=== PATIENT | female | born 1930 | race Caucasian/White ===

== ENCOUNTER 2016-11-12 09:49 | Outpatient (CLI) | payer MEDICARE, OTHER ==
[~2016-11-12] VITALS: Ht 160 cm; Wt 70.3 kg
--- OUTSIDE RECORDS SUMMARY | 2016-11-12 09:53 | XMS REPORT | Continuity of Care Document ---
Author Author [facility] Organization [facility] Address Unknown Phone Unavailable Support Name Relationship Address Phone LILLIAN HOLBROOK MD Caregiver [address] [place] [address] ARACELI SCHWARTZ MD Caregiver [address] [facility] [place] [address] MARICOLETAMEKA [place] [address] Insurance Providers Payer Name Policy Number Subscriber Name Relationship [employer] [id number] Self / Same As Patient Comm Crossover Enter Ins Name [id number] March 13 Self / Same As Patient Advance Directives Directive Response Recorded Date/Time Advance Directives No 08/05/14 3:05pm Organ Donor No 08/05/14 3:05pm Resuscitation Status Full Code 08/05/14 3:05pm Problems No known problems or medical conditions. Medications No known medications. Social History Social History Problem Response Recorded Date/Time Recent Foreign Travel No 08/05/2014 3:08pm Hospital Discharge Instructions No hospital discharge instructions. Plan of Care No plan of care. Functional Status No functional status results. Allergies, Adverse Reactions, Alerts Allergen Type Severity Reaction Status Last Updated No Known Drug Allergies Active 08/05/14 Immunizations No immunization records. Vital Signs Acute Vital Signs Vital Response Date/Time Temperature (Fahrenheit) 97.5 degrees F (97.6 - 99.5) Temperature (Calculated Celsius) 36.87176 degrees C (36.4 - 37.5) Temperature Source Tympanic Pulse Rate (adult) 62 bpm (60 - 90) Respiratory Rate 18 bpm (12 - 24) O2 Sat by Pulse Oximetry 96 % (88 - 100) Blood Pressure 174/101 mm Hg Pain Pain Intensity 2 Pain Pain Intensity 2 Height (Feet) 5 feet Height (Inches) 3.00 inches Height (Calculated Centimeters) 160.885265 cm Weight (Pounds) 165 pounds Weight (Calculated Grams) 45081.742 gm Weight (Calculated Kilograms) 74.642047 kilograms Calculated BMI 29.23 Results No known relevant diagnostic tests, laboratory data and/or discharge summary. Procedures No known history of procedures. Encounters Encounter Location Date/Time Registered Clinic [facility] 08/05/14 1:05pm
[2016-11-12] MEDS ORDERED: BUPIVACAINE 0.25% 30 ML (SENSORCAINE) VIAL ONE (10:04)
[2016-11-12] MEDS ORDERED: TRIAMCINOLONE ACET (KENALOG-40) 40 MG/ML 1 ML VIAL ONE (10:04)
[2016-11-12 10:11] VITALS: BP 121/78
[2016-11-12 10:42] VITALS: BP 127/74
--- NOTE | 2016-11-12 14:14 | Pain Medicine-Procedure ---
Procedure Pre-Op/Post-Op Diagnosis Diagnosis: disc disorder with radiculopathy, lumbar Indications for Operation Low back pain Attending Surgeon Mariano Procedure Date of Service: Nov 12, 2016 Procedure: Lumbar Epidural Steroid Injection at the L5-S1 level under Fluoroscopic Guidance Procedure: Patient was identified in the holding area. After risks, benefits, and alternatives were discussed with the patient, informed consent was obtained. Patient was brought to the fluoroscopy suite and placed prone on the procedure room table. A time out was performed. Vital signs were monitored throughout the procedure. The patients low back was prepped and draped in the usual sterile fashion. The patients skin was anesthetized using 2% Lidocaine. A Tuohy needle was inserted and advanced to the L5-S1 epidural space under fluoroscopic guidance using the loss of resistance technique and intermittent projection of fluoroscopy. There was no paresthesia with needle placement. The needle position was confirmed in both the AP and lateral view. After negative aspiration 2ml of contrast was injected under live fluoroscopy which showed good spread of the contrast in the epidural space at the appropriate level, there was no intravascular or subarachnoid spread. Again, after negative aspiration for heme or CSF, 2 ml of 0.25% Bupivicaine, 2ml of preservative free normal saline, and 80mg of Kenalog was injected. The needle was removed and a sterile bandage was placed and the patient was transferred to the recovery area in stable condition. After a brief period of observation, patient was discharged to home with no new neurological deficits and no apparent complications. Complications None ARACELI SCHWARTZ MD Nov 12, 2016 2:14 pm
== END 2016-11-12 10:44 | disposition home or self-care (01) ==
LOC: CARD 09:49
PROVIDERS: ATTEND Pain Medicine Pain Medicine
DX: M51.16 Intervertebral disc disorders with radiculopathy, lumbar region (principal); G89.4 Chronic pain syndrome; M53.3 Sacrococcygeal disorders, not elsewhere classified; Z79.899 Other long term (current) drug therapy
CPT/HCPCS: 62323